=== PATIENT | male | born 1990 | race African-American/Black ===

== ENCOUNTER 2024-03-16 15:25 | Emergency (ER) | payer OTHER | END 2024-03-16 17:39 | disposition home or self-care (01) | LOC: ERS 15:25 | DX: S93.402A Sprain of unspecified ligament of left ankle, initial encounter (principal); I10 Essential (primary) hypertension; W18.42XA Slipping, tripping and stumbling without falling due to stepping into hole or opening, initial encounter ==

== ENCOUNTER 2024-06-24 03:27 | Emergency (ER) | payer OTHER ==
[2024-06-24] MEDS ORDERED: Acetaminophen 500 MG TAB ONE (04:14)
[2024-06-24] MEDS ORDERED: Ibuprofen 200 MG TAB ONE ×2 (04:14→04:15)
[2024-06-24] MEDS ORDERED: Dexamethasone 10 MG/ML VIAL ONE (04:14)
== END 2024-06-24 04:27 ==
LOC: EEVIPCON 03:27 → ERS 03:27
DX: J02.9 Acute pharyngitis, unspecified (principal); I10 Essential (primary) hypertension
CPT/HCPCS: 99282; J1100